=== PATIENT | female | born 1940 | race Caucasian/White ===

== ENCOUNTER 2021-11-11 11:02 | Inpatient (IN) | payer MEDICARE, MEDICAID, SELFPAY ==
[2021-11-11] VITALS (26 sets, daily range): BP systolic 128–162; BP diastolic 66–96; PULSE 80–101; RESP 13–23; TEMP 36.7–37.1; O2SAT 90–100; BMI 26.4
--- NOTE | 2021-11-11 11:03 | ECG_ITS ---
[facility] Test Date: 2021-11-11 Pat Name: Nemo Way Department: Room: ICU03 Gender: Female Ibm Mainframe Developer: : 1940 Requested By: Pema Velazco Order Number: [id number] Reading MD: Jagdish Celestin M.D. Measurements Intervals [place] Rate: 82 P: 42 AL: 136 QRS: -15 QRSD: 89 T: 37 QT: 383 QTc: 448 Interpretive Statements SINUS RHYTHM LOW QRS VOLTAGE IN PRECORDIAL LEADS [QRS DEFLECTION < 1.0 mV IN CHEST LEADS] MARKED ST ELEVATION, CONSIDER INFERIOR INJURY [MARKED ST ELEVATION W/O NORMALLY INFLECTED T-WAVE IN II/aVF] ACUTE MO Compared to ECG 01/25/2019 20:02:57 ST (T wave) deviation now present Left-axis deviation no longer present T-wave abnormality no longer present Possible ischemia no longer present Myocardial infarct finding still present Electronically Signed On 11-12-2021 12:24:47 GRAIN MIXER by Jagdish Celestin M.D. [id number]
--- NOTE | 2021-11-11 11:11 | XACV_ITS ---
Exam Room: 2 Ht: 160 cm Wt: 70 kg BSA: 1.79 m2 Gender: Female : 1940 Any Known Allergies: No known allergies Exam Priority: Routine Indication(s): - Acute inferior NE Procedure(s): Procedure Description: Diagnostic procedure Procedure Description: PCI procedure Procedure Description: Drug Eluting Coronary Stent Procedure Description: PTCA Procedure Description: Coronary Angiography Diagnostic Cath Status: Emergency Diagnostic Findings * This is a 81-year-old woman with diabetes and dyslipidemia who began to have chest pain at 9 AM this morning. EKG showed typical findings of an acute inferolateral wall myocardial infarction. She was brought to the Probate Paralegal. * Angiography reveals right coronary artery dominance. The left main is normal and bifurcates into the LAD and circumflex. Circumflex contains a significant calcium proximal and mid vessel. The vessel is closed in the midportion. This is the culprit vessel. The LAD also contains luminal irregularities and calcium. There is a 98% stenosis just beyond the ostium of the LAD. The right coronary artery is the dominant vessel and ends distally as the posterior descending artery and 2 small posterior left ventricular branches. Aside from luminal irregularities it is normal. PCI Status: Emergency PCI LVEF Assessed: No PCI Indication: STEMI - Immediate PCI for STEMI Interventional Findings * Initially the circumflex was approached. A wire was placed across the thrombotic occlusion. Angioplasty and stenting were performed without incident. Due to the severe nature of the ostial LAD stenosis this was primarily stented with a good result. Decision for PCI with Surgical Consult: No PCI for Multi-vessel Disease: Yes Multi-vessel Procedure Type: Initial PCI Conclusions 1. Acute inferolateral myocardial infarction involving the mid circumflex with successful angioplasty and stent. Primary stenting of the ostial LAD. Recommendations * Medical therapy from this point forward. Interventional RX Recommendation: PCI w/o planned CABG Diagnostic RX Recommendation: PCI w/o planned CABG Anticoagulation: Heparin Pressures Phase:Rest AO : 182 / 105 ( 140 ) @ 9:33:00 AM 7 / -17 ( -6 ) @ 9:37:00 AM 178 / 94 ( 132 ) @ 9:53:00 AM 169 / 101 ( 133 ) @ 9:58:00 AM 171 / 92 ( 117 ) @ 10:00:00 AM 87 / 43 ( 64 ) @ 10:00:00 AM Clinical Evaluation EBL: 5mL-10mL Procedural Details Procedure Consent Obtained. Pre-Procedure Time Out. Identified patient by full name and date of as verbalized by the patient/guarantor. Does the consent match the physician's order: N/A Emergent. Accurate & Complete Informed Consent: Yes. Inpatient/Outpatient History & Physical on Chart: N/A Emergent. If H&P is completed, is and addenduem needed: N/A Emergent; If yes, is the addendum complete: N/A Emergent. Visualize and Verify Site with Patient/Guarantor: N/A. Relevant Radiology Images available: N/A Emergent. Pre-op teaching completed and patient verbalized understanding. The risks, benefits, and alternatives of sedation and/or procedure were discussed by physician. The patient agrees to continue. Procedure started. [facility] Clinical Fraility Score: 3: Managing Well. Probate Paralegal Indications: ACS <= 24 hours. Chest Pain Symptom Assessment: Typical Angina Symptoms. Cardiovascular Instability: No. Correct patient, site and procedure confirmed by cath team. PERRLA. Strong, equal hand sustainability officer bilaterally. Lungs clear x 5 lobes. IV Site on Arrival: 18 gauge in the left anticubital. IV Fluids: 0.9% NaCl at KVO. 200 mL infused prior to label printer. Oxygen started at 2liters/min via nasal canula. Physician arrived. Baseline sample Acquired. HR: 84 BPM. bilateral groins was prepped with chloroprep then draped in the usual sterile fashion. right radial was prepped with chloroprep then draped in the usual sterile fashion. Equipment: 6F - Radial. Cardiac Cath Pack. ACIST Manifold Kit Model BT 2000. Heparinized Saline (2 units/mL), 1000 mL bag. Maria R Connelly RN will be circulating nurse for this case. Physician scrubbed in. Immediate Pre-Procedure Time Out. Correct Patient: Yes; Correct Procedure: N/A Emergent; Correct Site: N/A Emergent; Correct Patient Position: N/A Emergent; Correct Supplies: N/A Emergent; Dried Flammable Prep: N/A Emergent; Blood Products Available: N/A Emergent;. Lidocaine 1% infiltrated to the right radial. Arterial access obtained. A 5 thai TIG catheter in over wire. Multiple views taken of left coronary artery. Catheter redirected to the RCA. Glidewire inserted for catheter exchange. Inventory is TR Glidewire Angled Stiff Shaft .035 260cm. Catheter and glidewire out. A 5 thai JR4 catheter in over wire. Catheter removed over the standard wire. Unable to properly seat catheters due to tortuous anantomy. Physician moving to femoral artery approach. A TR Band was successful obtaining hemostatsis at the Right Radial artery insertion site. Lidocaine 1% infiltrated to the right groin. Arterial access obtained. A 5 thai JR4 catheter in over wire. Multiple views taken of right coronary artery. Catheter removed over the standard wire. 6 thai XB 3 guide catheter was inserted over the wire. PCI Indication: STEMI. Current Diagnosis : STEMI. Axis guidewire was advanced through the guide catheter to lesion in the mid Circ. Inflation Number : 1 A MDT R MIL 3.5X18 DEBORAH -Lot Number# _[id number] EXP: 06/01/2024 was prepped and advanced across the Mid CX. The stent was deployed at 13 SHERIDAN for 0:35 seconds. Stent balloon and wire out. Axis guidewire was advanced through the guide catheter to lesion in the prox LAD. AP Pads placed on patient. Inflation Number : 1 A MDT R MIL 3.0X12 DEBORAH -Lot Number# _[id number] EXP: 01/12/2024 was prepped and advanced across the Prox LAD. The stent was deployed at 12 SHREIDAN for 0:32 seconds. Stent balloon and wire out. Guide catheter out. Sheath(s) sutured into position with 2-0 silk and sterile 4x4's and Op-site applied over the site. No oozing or signs and symptoms of hematoma noted. Arterial sheath flushed and connected to tranducer and pressure bag with heparinized saline. Post Procedure: Pulses reassessed and unchanged. No VTE prophylaxis required. A Suture was successful obtaining hemostatsis at the Right Femoral artery insertion site. TR band placed. Hemostasis obtained. PERRLA. Strong, equal hand sustainability officer bilaterally. Medication's Wasted: Lidocaine 1% = 8 mL. Medication's Wasted: Nitro = 49.8 mg. Medication's Wasted: Heparin = 2000 units. Total IV fluids: 55 mL. Contrast type used: Omnipaque 300 mg/mL, 150 mL bottle. Post-op diagnosis: stemi. Complications: none. Estimated blood loss: 5mL-10mL. Responsiveness - Normal response to verbal stimuli; alert and oriented, PERRLA. Airway - Unaffected, no intervention required; spontaneous ventilation. Circulation: W/N/L, pulses unchanged. Nausea/Vomiting: No. Procedure completed. Patient transferred by bed to ICU. Vital chart was stopped. Access Site Site: Right Radial artery Sheath Size: 6 Fr Hemostasis Method: TR Band Hemostasis Success: Successful Site: Right Femoral artery Sheath Size: 6 Fr Hemostasis Method: Suture Hemostasis Success: Successful Procedure Medications Start: 11:31 AM Stop: 11:31 AM Medication: Nitrogylcerin Amount: 200 mcg Route: I.A. Start: 11:33 AM Stop: 11:33 AM Medication: Versed Amount: 1 mg Route: I.V. Start: 11:25 AM Stop: 11:25 AM Medication: Versed Amount: 1 mg Route: I.V. Start: 11:25 AM Stop: 11:25 AM Medication: Fentanyl Amount: 50 mcg Start: 11:49 AM Stop: 11:49 AM Medication: Versed 1 mg and Fentanyl 25 mcg Amount: 1 Route: I.V. Start: 11:52 AM Stop: 11:52 AM Medication: Heparin Amount: 2000 units Route: I.V. I, the attending physician, have reviewed and verified all procedure medications. Yes, all medications given per verbal order History/Risk Factors Hypertension: No Dyslipidemia: Yes Peripheral Arterial Disease (PAD): No Myocardial Infarction (NE): No Obesity: No Renal Disease: No Prior Interventions PCI: No CABG: No Valve Surgery: No Report Signatures Finalized by Dr. Jagdish Celestin MD on 11/11/2021 03:57 PM
--- NOTE | 2021-11-11 11:11 | W.ED.GENADLT ---
HPI - General Adult General: Chief complaint: Chest Pain Stated complaint: CHEST PAIN Time Seen by Provider: 11/11/21 11:03 History of Present Illness: CC: Chest Pain HPI: This is a [81] yo patient hx of HTN, HLD, DM BIBA to the ED w/ acute onset crushing substernal chest pain x 15 hours. En route, HDS, field ECG showed inferioposterolateral STEMI. Onset: 15 hrs ago Duration: ongoing for the last 15 hrs Location: home Severity: severe Associated symptoms: Reports chest pain; Deny dyspnea, nausea, rash, palpitations or vomiting Review of Systems Const: Denies: fever(s) or chills Eyes: Denies: change in vision ENMT: Denies: mouth pain Card: Reports: chest pain; Denies: palpitations Resp: Denies: dyspnea or non-productive cough GI: Denies: abdominal pain, nausea, vomiting or diarrhea : Denies: dysuria Musc: Denies: extremity pain Skin/Breast: Denies: rash or new lesions Neuro: Denies: weakness in extremities Psych: Reports: other (Normal mood) Lamberto/Lymph: Denies: easy bruising PFSH ED PFSH: Medical History Dyslipidemia GERD (gastroesophageal reflux disease) HTN (hypertension) Hypothyroidism Palpitations Social History Smoking and tobacco status: never smoked Alcohol intake: never Physical Exam Const: COMMON NORMALS: alert HENMT: COMMON NORMALS: atraumatic HEAD & SCALP: atraumatic MOUTH: moist mucous membranes not abnormal Eye: COMMON NORMALS: EOMs intact bilaterally and conjunctivae normal CONJUNCTIVA: Yes conjunctivae normal Neck/C-Spine: COMMON NORMALS: full ROM and supple Resp: COMMON NORMALS: normal respiratory effort and clear to auscultation bilaterally AUSCULTATION: clear to auscultation bilaterally Cardio: COMMON NORMALS: regular rate RATE: regular rate GI: COMMON NORMALS: Soft to palpation and non-tender PALPATION: Yes Soft to palpation Extremity: COMMON NORMALS: full ROM Neuro: SENSORIUM/ORIENTATION: Yes alert MOTOR EXAM: No Abnormal motor strength present and Other motor observations present (no focal motor deficits) Psych: COMMON NORMALS: speech normal SPEECH: Yes normal speech MOOD & AFFECT: Yes euthymic mood Course Vital Signs: Vital signs: Vital Signs Temperature 98.0 F 11/11/21 11:04 Pulse Rate 80 11/11/21 11:04 Respiratory Rate 18 11/11/21 11:04 Blood Pressure 158/96 11/11/21 11:04 Pulse Oximetry 92 11/11/21 11:04 MDM - General Adult Medical Decision Making [81]yo pt w/ HTN, HLD, DM BIBA for active chest pain with field EKG for STEMI in the inferioposteriolateral distribution. Patient was otherwise in their normal state of health before this chest pain rapidly ensued. Given history and exam I have a lower suspicion for TAA or dissection because no tearing chest pain, bounding bilateral UE pulses, XR chest did not show widened mediastinum, and patient is neurologically intact. I have no suspicion for PE because hx and exam are more consistent with STEMI and no signs of right axis with ANTONIA findings on ECG. I performed a bedside echo which did not right heart strain to suggest submassive/massive PE. Pending: CBC, BMP, troponin, T&S, PT/INR. Will obtain repeat EKGs until metallurgical laboratory assistant, CXR. S/p ASA and nitro en route by EMS. Given brillanta, heparin drip. Dr. Celestin evaluated patient at bedside with recommendation for metallurgical laboratory assistant Disposition: Mortar Worker Discharge Plan Discharge Patient Disposition: Admitted As Inpatient Clinical Impression: ST elevation (STEMI) myocardial infarction Condition: Stable Coding Level of Care Code ED Clinical Research Director for Almaz Sutton
[2021-11-11] MEDS: heparin 5,000 unit/mL INJ 1 mL 4000 UNIT IVP (11:15)
[2021-11-11] MEDS: ticagrelor 90 mg Tablet 180 MG PO (11:17)
[2021-11-11 11:43] LABS: Troponin(5th) Baseline 64 ng/L (0-10)
--- NOTE | 2021-11-11 13:03 | ECG_ITS ---
[facility] Test Date: 2021-11-11 Pat Name: Nemo Way Department: Room: ICU03 Gender: Female Clinching Machine Operator: : 1940 Requested By: Pema Velazco Order Number: [id number] Dat MD: Jagdish Celestin M.D. Measurements Intervals [place] Rate: 87 P: 48 ME: 142 QRS: -39 QRSD: 75 T: 180 QT: 374 QTc: 450 Interpretive Statements SINUS RHYTHM WITH SINUS ARRHYTHMIA LEFT AXIS DEVIATION [QRS AXIS < -30] LOW QRS VOLTAGE IN PRECORDIAL LEADS [QRS DEFLECTION < 1.0 mV IN CHEST LEADS] INFERIOR MYOCARDIAL INFARCTION , OF INDETERMINATE AGE [30 ms Q WAVE IN V3/V4, OR R < 0.2 mV IN V4] MODERATE T-WAVE ABNORMALITY, CONSIDER LATERAL ISCHEMIA [-0.1+ mV T-WAVE IN I/aVL/V5/V6] Compared to ECG 11/11/2021 13:46:55 T-wave abnormality now present Possible ischemia now present ST (T wave) deviation no longer present Myocardial infarct finding still present Electronically Signed On 11-12-2021 12:29:53 CLUB MANAGER by Jagdish Celestin M.D. [id number]
--- NOTE | 2021-11-11 13:16 | P.HP_ITS ---
Providers/Chief Complaint Admitting Physician: Jagdish Celestin MD Primary Care Provider: Ora Lynn Chief Complaint: CHEST PAIN History of Present Illness Nemo Way is a 81 year old female with no known history of heart disease but she does have a history of diabetes on oral agents, hypertension, dyslipidemia and thyroid disease. She is not allergic to any medications. For the last 3 nights she has had what she describes as a heaviness on her chest. It has gone away on its own. This morning it did not go away and started about 9:00. The pain then got worse and she called the ambulance. Her EKG showed a ST segment elevation NV. She was treated in the emergency room and taken quickly to the catheterization laboratory. Her circumflex was occluded in the midportion and she had a 99% ostial LAD lesion. Review of Systems Narrative: Review of systems is negative Medications/Allergies Home Medications Medication Instructions Recorded Confirmed Last Taken Type ascorbic acid (vitamin C) 1,000 mg 1 gm PO DAILY tab 09/23/19 03/31/20 Unknown History tablet aspirin 81 mg tablet,delayed 81 mg PO DAILY tab 09/23/19 03/31/20 Unknown History release (Adult Low Dose Aspirin) calcium carbonate 500 mg (1,250 1 tab PO DAILY tab 09/23/19 03/31/20 Unknown History mg)-vitamin D3 200 unit tablet (Calcium 500 + D) cholecalciferol (vitamin D3) 25 1,000 unit PO DAILY cap 09/23/19 03/31/20 Unknown History mcg (1,000 unit) capsule estradiol 1 mg tablet 1 mg PO DAILY tab 09/23/19 03/31/20 Unknown History levothyroxine 25 mcg capsule 25 mcg PO DAILY cap 09/23/19 03/31/20 Unknown History multivitamin,di-puya-safxavdu 1 tab PO DAILY tab 09/23/19 03/31/20 Unknown History (Complete Multivitamin) omega-3 fatty acids 1,000 mg 1,000 mg PO DAILY cap 09/23/19 03/31/20 Unknown History capsule vitamin E 200 unit capsule 200 unit PO DAILY cap 09/23/19 03/31/20 Unknown History hydrochlorothiazide 12.5 mg tablet 25 mg PO DAILY PRN tab 03/31/20 03/31/20 Unknown History magnesium oxide 400 mg PO DAILY 03/31/20 03/31/20 Unknown History AREDS PO BID 10/06/21 Unknown History gemfibrozil 600 mg tablet ea PO 10/06/21 Unknown History Allergies Allergy/AdvReac Type Severity Reaction Status Date / Time No Known Allergies Allergy Verified 11/11/21 11:03 PFSH Acute PFSH: Medical History Dyslipidemia GERD (gastroesophageal reflux disease) HTN (hypertension) Hypothyroidism Palpitations Social History Smoking and tobacco status: never smoked Alcohol intake: never Vitals/I&O/Wt Last Vital Signs Temp 98.7 F 11/11/21 11:18 Pulse 86 11/11/21 11:18 Resp 19 H 11/11/21 11:18 BP 158/96 11/11/21 11:18 Pulse Ox 90 11/11/21 11:18 Weight last 48 hrs Weight 169 lb 12.095 oz Weight 154 lb Physical Exam Narrative: GENERAL: General she appears stable but is mildly uncomfortable with chest discomfort HEENT: Exam within normal limits. NECK: Supple without jugular vein distention. The carotid upstroke is normal without bruits. BACK: Exam normal. LUNGS: Clear. HEART: Regular rate and rhythm. ABDOMEN: Benign without organomegaly or tenderness. EXTREMITIES: No edema. NEUROLOGIC: Exam normal. SKIN: Unremarkable. Data Other Labs: Labs are pending at the time of this dictation A&P Assessment and plan (1) ST elevation (STEMI) myocardial infarction: Status: Acute (2) Hypothyroidism: Status: Acute Qualifiers: Hypothyroidism type: unspecified Qualified Code(s): E03.9 - Hypothyroidism, unspecified (3) GERD (gastroesophageal reflux disease): Status: Acute Qualifiers: Esophagitis presence: esophagitis presence not specified Qualified Code(s): K21.9 - Gastro-esophageal reflux disease without esophagitis (4) Dyslipidemia: Status: Acute (5) Diabetes 1.5, managed as type 2: Status: Acute Attestations Medical Necessity Statement*: Patient needs acute hospitalization after catheterization for acute ST segment elevation NV Coding Level of Care Code New Pt Acute Minute Clerk For Basic Traffic for Chg Fwd Patient Type New History Comprehensive Exam Comprehensive Medical Decision Making High Complexity Diagnoses ST elevation (STEMI) myocardial infarction I21.3 Hypothyroidism E03.9 Hypothyroidism type: unspecified GERD (gastroesophageal reflux disease) K21.9 Esophagitis presence: esophagitis presence not specified Dyslipidemia E78.5 Diabetes 1.5, managed as type 2 E13.9 Time Spent (min) 20
[2021-11-11 13:45] LABS: Glucose Point of Care 176 mg/dL (70-110)
[2021-11-11 14:31] LABS: Troponin 5 2HR 5254 ng/L (0-10); Troponin 5 2HR Delta 5190 ABS# (0-10)
[2021-11-11 14:44] LABS: Partial Thromboplastin Time 151.5 SECONDS (23.9-36.7)
[2021-11-11] MEDS: sodium chloride 0.9% 1,000 ML 100 ML IV (14:50)
--- NOTE | 2021-11-11 17:03 | ECG_ITS ---
[facility] Test Date: 2021-11-11 Pat Name: Nemo Way Department: Room: ICU03 Gender: Female Data Collection Specialist: : 1940 Requested By: Pema Velazco Order Number: [id number] Dat MD: Jagdish eClestin M.D. Measurements Intervals [place] Rate: 83 P: 44 NV: 146 QRS: -33 QRSD: 79 T: 180 QT: 382 QTc: 449 Interpretive Statements SINUS RHYTHM WITH SINUS ARRHYTHMIA LEFT AXIS DEVIATION [QRS AXIS < -30] LOW QRS VOLTAGE IN PRECORDIAL LEADS [QRS DEFLECTION < 1.0 mV IN CHEST LEADS] POSSIBLE ANTERIOR MYOCARDIAL INFARCTION , OF INDETERMINATE AGE [30 ms Q WAVE IN V3/V4, OR R < 0.2 mV IN V4] ST ELEVATION, CONSIDER INFERIOR INJURY [MARKED ST ELEVATION W/O NORMALLY INFLECTED T-WAVE IN II/aVF] ACUTE CA Compared to ECG 01/25/2019 20:02:57 ST (T wave) deviation now present T-wave abnormality no longer present Possible ischemia no longer present Myocardial infarct finding still present Electronically Signed On 11-12-2021 12:28:17 LATCHER by Jagdish Celestin M.D. [id number]
[2021-11-11 17:14] LABS: Partial Thromboplastin Time 23.9 SECONDS (23.9-36.7)
[2021-11-11 17:28] LABS: Glucose Point of Care 127 mg/dL (70-110)
[2021-11-11 17:58] LABS: Troponin 5 6HR 8935 ng/L (0-10)
[2021-11-11 17:59] LABS: Troponin 5 6HR Delta 8871 ng/L (0-12)
[2021-11-11] MEDS: morphine 4 mg/mL SDV 1 mL 2 MG IVP (18:19)
--- NOTE | 2021-11-11 19:29 | PC.NURSE ---
TR band and Sheath pulled at 1850, no complications, no hematoma formation. Patient tolerated well. Dressings applied. There was a delay in pulling sheath due to high PTT. Patient educated on bed rest, not pushing/pulling with right arm, and S/S of bleeding and chest pain.
--- NOTE | 2021-11-11 22:58 | PC.NURSE ---
Spoke to Dr. Celestin to report that patient has had three short runs of wide complex tachycardia. Orders for labs in the am.
[2021-11-12] VITALS (50 sets, daily range): BP systolic 102–144; BP diastolic 55–87; PULSE 80–102; RESP 8–27; TEMP 36.1; O2SAT 85–100
[2021-11-12] MEDS: sodium chloride 0.9% 1,000 ML 100 ML IV ×2 (02:06→14:02)
[2021-11-12] MEDS: morphine 4 mg/mL SDV 1 mL 2 MG IVP ×2 (02:06→23:41)
[2021-11-12 04:27] LABS: Alanine Aminotransferase 46 U/L (0-33); Albumin Level 3.3 g/dL (3.5-5.2); Alkaline Phosphatase 102 IU/L (35-105); Anion Gap 13.6 (5-19); Aspartate Amino Transferase 225 U/L (0-32); Blood Urea Nitrogen 7 mg/dL (8-23); Calcium 8.8 mg/dL (8.5-10.5); Carbon Dioxide 24 mmol/L (22-29); Chloride 98 mmol/L (98-107); Glucose 175 mg/dL (65-115); Magnesium 1.7 mg/dL (1.7-2.3); Osmolality Calculated 276 mOsm/kg (285-295); Potassium 3.6 mmol/L (3.5-5.1); Sodium 132 mmol/L (136-145); Total Bilirubin 0.3 mg/dL (0.15-1.2); Total Protein 6.3 g/dL (6.6-8.7)
[2021-11-12 07:15] LABS: Glucose Point of Care 203 mg/dL (70-110)
--- NOTE | 2021-11-12 07:43 | P.PN_ITS ---
Subjective Subjective: Patient had an acute myocardial infarction yesterday morning with an occluded circumflex. This was stented after angioplasty. She also had a 98% ostial LAD which was stented. The right was normal. No left ventriculogram was performed. We initially used the right radial artery but due to the tortuosity in her brachial vessels we had to switch to the right common femoral artery. The procedure went well. Both sheaths have been removed and there have been no complications. She had some premature ventricular contractions overnight but no sustained tachycardias. Her troponin was as high as 8000. Medications: Reviewed: Yes Vitals/I&O/Wt Last Vital Signs Temp 98.7 F 11/11/21 11:18 Pulse 92 11/11/21 14:00 Resp 16 11/12/21 02:06 BP 141/83 11/11/21 13:00 Pulse Ox 99 11/12/21 02:06 11/11/21 11/12/21 11/12/21 22:59 06:59 14:59 Intake Total 240 / 240 1300 / 1540 Output Total 1150 / 1150 250 / 250 Balance -910 / -910 1300 / 390 -250 / -250 Weight last 48 hrs Weight 169 lb 12.095 oz Weight 154 lb Physical Exam Narrative: GENERAL: In general she feels well this morning. She feels much better than yesterday. HEENT: Exam within normal limits. NECK: Supple without jugular vein distention. The carotid upstroke is normal without bruits. BACK: Exam normal. LUNGS: Clear. HEART: Regular rate and rhythm. ABDOMEN: Benign without organomegaly or tenderness. EXTREMITIES: No edema. The right radial artery is flat and dry. No hematoma, no evidence of any vascular anomaly. The right groin exhibits no bleeding, and the no hematoma. No evidence of a pseudoaneurysm. NEUROLOGIC: Exam normal. SKIN: Unremarkable. Data : 11/12/21 03:02 A&P Assessment and plan (1) Diabetes 1.5, managed as type 2: Status: Acute (2) ST elevation (STEMI) myocardial infarction: Status: Acute (3) Hypothyroidism: Status: Acute Qualifiers: Hypothyroidism type: unspecified Qualified Code(s): E03.9 - Hypothyroidism, unspecified (4) GERD (gastroesophageal reflux disease): Status: Acute Qualifiers: Esophagitis presence: esophagitis presence not specified Qualified Code(s): K21.9 - Gastro-esophageal reflux disease without esophagitis (5) Dyslipidemia: Status: Acute (6) Transaminitis: Status: Acute (7) PVCs (premature ventricular contractions): Status: Acute Plan She should be up and around today. The sheaths are out without any difficulty. I would anticipate her discharge tomorrow. I will obtain an echocardiogram today. She remains on sliding scale insulin which will have to be changed back to her by mouth dose of glipizide tomorrow before she is discharged. I will change her beta-lenore to short acting metoprolol. We will set her up with a nurse practitioner in a week and then to see one of the cardiologists in about 6 weeks. Attestations Medical Necessity Statement*: She requires hospitalization for about 24 hours further for treatment of an acute myocardial infarction post stenting of 2 vessels. Also treatment of diabetes. Coding Level of Care Code Established Pt Acute Contracts Administrator for Almaz Sutton Patient Type Established History Detailed Exam Detailed Medical Decision Making Moderate Complexity Diagnoses Diabetes 1.5, managed as type [address] elevation (STEMI) myocardial infarction I21.3 Hypothyroidism E03.9 Hypothyroidism type: unspecified GERD (gastroesophageal reflux disease) K21.9 Esophagitis presence: esophagitis presence not specified Dyslipidemia E78.5 Transaminitis R74.01 PVCs (premature ventricular contractions) I49.3
--- NOTE | 2021-11-12 07:51 | USCV_ITS ---
[address] Age: 81 Gender: F : 1940 Exam Date: 11/12/2021 13:51 Ordering Phys: Jagdish Celestin MD ([email or web address]) Technologist: Exam Location: [facility] [place] Indication: HX OF PR BP: 115 / 54 HR: 91 Rhythm: Sinus Technical Quality: Adequate MEASUREMENTS (Male / Female) Normal Values 2D ECHO LV Diastolic Diameter PLAX 4.2 cm 4.2 - 5.9 / 3.9 - 5.3 cm LV Systolic Diameter PLAX 2.8 cm IVS Diastolic Thickness 1.2 cm 0.6 - 1.0 / 0.6 - 0.9 cm IVS Systolic Thickness 1.3 cm LVPW Diastolic Thickness 1.1 cm 0.6 - 1.0 / 0.6 - 0.9 cm LVPW Systolic Thickness 1.2 cm LVOT Diameter 2.0 cm LV Ejection Fraction 2D Teich 62.5 % LV Ejection Fraction MOD 2C 44.5 % LV Ejection Fraction 2C AL 43.4 % LA Diameter 3.3 cm LA Width 3.5 cm LA Height 3.7 cm RA Width 2.7 cm RA Height 3.8 cm M-MODE LV Diastolic Diameter MM 5.2 cm 4.2 - 5.9 / 3.9 - 5.3 cm LV Systolic Diameter MM 3.5 cm LV Ejection Fraction MM Teich 61.6 % IVS Diastolic Thickness MM 1.1 cm 0.6 - 1.0 / 0.6 - 0.9 cm IVS Systolic Thickness MM 1.1 cm LVPW Diastolic Thickness MM 1.0 cm 0.6 - 1.0 / 0.6 - 0.9 cm LVPW Systolic Thickness MM 1.5 cm RV Diastolic Diameter MM 1.5 cm Aortic Annulus Diameter 2.9 cm LA Ao Ratio MM 1.3 MV E Point Septal Separation 0.7 cm DOPPLER AV Peak Velocity 168.0 cm/s LVOT Peak Velocity 92.0 cm/s AV Area Cont Eq vti 1.9 cm squared AV Area Cont Eq pk 1.8 cm squared MV Area PHT 5.0 cm squared Mitral E to A Ratio 1.0 MV E' Velocity 54.0 cm/s Mitral E to MV E' Ratio 14.9 Mitral E to LV E' Lateral Ratio 12.1 Mitral E to LV E' Septal Ratio 20.0 TR Peak Velocity 273.7 cm/s TR Peak Gradient 30.0 mmHg TV Peak E Velocity 85.0 cm/s Right Atrial Pressure 3.0 mmHg Pulmonary Artery Systolic Pressu 33.0 mmHg FINDINGS Left Ventricle Normal left ventricular cavity size. Mild left ventricular hypertrophy. Mildly decreased left ventricular systolic function. Left ventricular ejection fraction is estimated at 45 %. Regional wall motion abnormalities (see diagram). Grade I/IV diastolic dysfunction (abnormal relaxation filling pattern), normal to mildly elevated filling pressures. Moderate lateral wall hypokinesis suggesting coronary artery disease and myocardial infarction. Right Ventricle Normal right ventricular size and systolic function. Mild pulmonary hypertension, RVSP 33 mmHg. Right Atrium Normal right atrial size. Left Atrium Normal left atrial size. Mitral Valve Structurally normal mitral valve. No mitral valve stenosis. No mitral valve regurgitation. Aortic Valve Mild aortic valve calcification. No aortic valve regurgitation. Mild aortic valve stenosis, mean gradient 5 mmHg, LINH 1.9 cm squared. Tricuspid Valve Structurally normal tricuspid valve. Trace to mild tricuspid valve regurgitation. Pulmonic Valve Pulmonic valve not well visualized. Pericardium No pericardial effusion. Aorta Normal size aortic root and proximal ascending aorta. CONCLUSIONS Normal left ventricular cavity size. Mild left ventricular hypertrophy. Mildly decreased left ventricular systolic function. Left ventricular ejection fraction is estimated at 45 %. Regional wall motion abnormalities (see diagram). Grade I/IV diastolic dysfunction (abnormal relaxation filling pattern), normal to mildly elevated filling pressures. Moderate lateral wall hypokinesis suggesting coronary artery disease and myocardial infarction. Normal right ventricular size and systolic function. Mild pulmonary hypertension, RVSP 33 mmHg. Mild aortic valve calcification. No aortic valve regurgitation. Mild aortic valve stenosis, mean gradient 5 mmHg, LINH 1.[address] Jagdish Celestin MD (Electronically Signed) Final Date: 13 November 2021 06:55 S
[2021-11-12] MEDS: aspirin 81 mg Chew Tablet PO (07:59)
[2021-11-12] MEDS: clopidogrel 75 mg Tablet PO (07:59)
[2021-11-12] MEDS: metoprolol tartrate 25 mg Tablet PO ×2 (07:59→20:47)
[2021-11-12] MEDS: insulin lispro 100 unit/1 mL SUBCUT ×3 (07:59→17:19)
--- NOTE | 2021-11-12 10:08 | PC.CHAP ---
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 visit [] Patient/Family/Request visit [] Outpatient visit [] Follow-up visit [] Physician referral [] Code/Alert [x] Routine visit [] Staff referral [] Actively dying [] Patient sleeping [] Family support [] [] Out of room [] Palliative care [] [] Receiving care in room [] Pre-surgical visit [] Trauma [] Long length of stay [x] ICU visit [] Other: Relational/Emotional Strength [] Patient feels connected with others/family/visitors/staff [] Distress [] Loneliness/isolation [] Abandonment Spirituality of Patient [] Person of Katarzyna [] Attends Restorationist of their Katarzyna [] Believes in Prayer [] Reads Bible or Confucianist materials [] There are Spiritual issues to be addressed 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 Interventions [x] Prayer [] Active listening [] Non-anxious presence [] Spiritual/emotional support [] Crisis/trauma care [] Spiritual counseling [] Bereavement support [] Provided bereavement packet [] Provided Bible/devotional materials [] Provided toy/stuffed animal, coloring book to patient or family member [] Provided Communion [] Anointing/Terrell [] Salvation [x] Completed spiritual assessment [] Other: Impact on Illness or Injury [] Angry [] Fearful [] Anxious [] Often cries [] Exhaustion [] Unable to work [] Unable to attend anabaptism [] Unable to walk/stand [] Unable to read [] Unable to drive [] Unable to eat/drink [] Unable to sleep [] Unable to be with family [] Patient intubated [] Other: Summary Time spent with patient
[2021-11-12 11:18] LABS: Glucose Point of Care 197 mg/dL (70-110)
[2021-11-12] MEDS: glycerin adult supp 1 EACH PR (13:15)
[2021-11-12 17:25] LABS: Glucose Point of Care 148 mg/dL (70-110)
[2021-11-12] MEDS: acetaminophen 325 mg Tablet 650 MG PO (17:34)
--- NOTE | 2021-11-12 18:38 | PC.NURSE ---
PT resting in bed. c/o mild back pain. Denies any needs. No ectopy or CP today. Uses BSC with minimal assist. AAOX4, family at bedside. Will monitor.
[2021-11-12] MEDS: atorvastatin 40 mg Tablet PO (20:47)
[2021-11-12 20:50] LABS: Glucose Point of Care 201 mg/dL (70-110)
[2021-11-12] MEDS: temazepam 15 mg Capsule PO (20:59)
[2021-11-13] VITALS (26 sets, daily range): BP systolic 95–136; BP diastolic 59–104; PULSE 79–95; RESP 13–23; TEMP 36.6; O2SAT 88–97
[2021-11-13] MEDS: acetaminophen 325 mg Tablet 650 MG PO (01:30)
[2021-11-13] MEDS: sodium chloride 0.9% 1,000 ML 100 ML IV (01:32)
[2021-11-13] MEDS: morphine 4 mg/mL SDV 1 mL 2 MG IVP (03:06)
[2021-11-13 07:03] LABS: Glucose Point of Care 160 mg/dL (70-110)
[2021-11-13] MEDS: insulin lispro 100 unit/1 mL SUBCUT ×2 (08:07→11:48)
[2021-11-13] MEDS: clopidogrel 75 mg Tablet PO (08:08)
[2021-11-13] MEDS: aspirin 81 mg Chew Tablet PO (08:08)
[2021-11-13] MEDS: metoprolol tartrate 25 mg Tablet PO (08:10)
--- NOTE | 2021-11-13 10:23 | ECG_ITS ---
[facility] Test Date: 2021-11-13 Pat Name: Nemo Way Department: Room: ICU03 Gender: Female Pattern Room Attendant: : 1940 Requested By: Janet Holcomb Order Number: [id number] Dat MD: Janet Holcomb M.D. Measurements Intervals [place] Rate: 93 P: 25 LA: 151 QRS: -38 QRSD: 74 T: 197 QT: 379 QTc: 472 Interpretive Statements SINUS RHYTHM WITH MARKED SINUS ARRHYTHMIA LEFT AXIS DEVIATION [QRS AXIS < -30] LOW QRS VOLTAGE IN PRECORDIAL LEADS [QRS DEFLECTION < 1.0 mV IN CHEST LEADS] POSSIBLE ANTERIOR MYOCARDIAL INFARCTION , PROBABLY OLD [30 ms Q WAVE IN V3/V4, OR R < 0.2 mV IN V4] MODERATE T-WAVE ABNORMALITY, CONSIDER LATERAL ISCHEMIA [-0.1+ mV T-WAVE IN I/aVL/V5/V6] MODERATE T-WAVE ABNORMALITY, CONSIDER INFERIOR ISCHEMIA [-0.1+ mV T-WAVE IN II/aVF] Compared to ECG 11/11/2021 17:33:57 No significant changes Electronically Signed On 11-13-2021 18:09:19 MACHINE TENDER by Janet Holcomb M.D. [id number]
--- NOTE | 2021-11-13 10:56 | PM.DCS ---
Discharge Providers Date of Admission: 11/11/21 12:13 Date of Discharge: November 13, 2021 Attending Provider at Admission: Jagdish Celestin MD Attending Provider at Discharge: SADAF Holcomb MD Primary Care Provider: Ora Lynn Diagnoses at Discharge Discharge Diagnosis (1) ST elevation (STEMI) myocardial infarction: Details from hospital stay: Patient apparently presented with features of an acute ST elevation myocardial infarction. She underwent a cardiac radiation followed by PCI of the totally occluded mid circumflex artery and high-grade ostial stenosis of the LAD. Further details, please refer to the cardiac catheterization report. The angiogram was initially attempted at the right radial artery. But because of the tortuosity of the brachial artery, right femoral arterial access of obtained. Status: Acute (2) Atherosclerotic heart disease of [place] coronary artery with unstable angina pectoris: Details from hospital stay: Angiogram revealed a total occlusion of the mid circumflex artery. This appeared to be the culprit vessel. Patient also had a high-grade ostial narrowing from 98% in the LAD. This was intervened as well. No significant disease in the right coronary artery. The LV gram was not performed. Echocardiogram revealed LV ejection fraction around 45%. Status: Acute (3) Hypothyroidism: Details from hospital stay: Clinically appears to be euthyroid. Advised to continue on the current medication. Status: Acute Qualifiers: Hypothyroidism type: unspecified Qualified Code(s): E03.9 - Hypothyroidism, unspecified (4) Diabetes 1.5, managed as type 2: Details from hospital stay: Patient is on oral hypoglycemic. This was continued in the hospital. May continue the same medication at discharge. Status: Acute (5) Dyslipidemia: Details from hospital stay: Patient was started on Lipitor in addition to the gemfibrozil. Her liver function need to be closely monitored as an outpatient. Liver enzymes are slightly elevated at the time of the hospital admission. The repeat one is pending Status: Acute (6) Transaminitis: Details from hospital stay: The liver enzymes are slightly elevated. Follow-up LFT revealed the enzyme levels are trending down. Status: Acute (7) PVCs (premature ventricular contractions): Details from hospital stay: Patient was started on a low-dose of beta-lenore. She did not have any significant PVCs while being in the hospital. Since the PCI, the patient has been doing okay with no recurrence of chest pain. She has been ambulating on the telemetry. Currently she remained stable. Status: Resolved Reason for Visit Reason for Visit: CHEST PAIN Hospital Course Hospital Course The patient was taken to the cardiac catheterization lab from the emergency room. She underwent a cardiac catheterization followed by PCI of the totally occluded mid circumflex artery and high-grade lesion of the ostial LAD. She had an uneventful postprocedure course. Did not have any hematoma /bleeding from the arterial access site. The right radial artery access was used initially. Because of brachial artery tortuosity, had to use the right femoral arterial access for intervention. Patient did not have any hematoma or bleeding of the arterial access site. He remained symptom free throughout the hospital course since the intervention. She had occasional PVCs which responded appropriately to the beta-lenore. She was started on Lipitor and Plavix and metoprolol. She tolerated these medications well. Since the patient remained stable with no new symptoms, she is being discharged home today Physical Exam Narrative: GENERAL: The patient is alert and oriented times three. Not in any acute distress. HEENT: No significant pallor, icterus or lymphadenopathy.Oral cavity: There are no mucous membrane lesions. NECK: Trachea appears to be central. No masses noted. No JVD or thyromegaly appreciated. RESPIRATORY: Chest is symmetrical. No intercostals muscle retraction or any accessory muscle activation. There is no chest wall tenderness. Breath sounds are heard bilaterally. No rales or rhonchi heard. No evidence of any consolidation. BREASTS: Deferred. HEART: The heart sounds are normal. No S3 or S4. No significant murmurs. No pericardial rub ABDOMEN: No vessel pulsations or distention. No tenderness. No organomegaly appreciated. Bowel sounds are normally heard. : Deferred. RECTAL: Deferred. LYMPHATIC: No lymphadenopathy noted in the neck or groin. EXTREMITIES: No edema or cyanosis. No clubbing. MUSCULOSKELETAL: No acute joint deformities or swelling SKIN: There are no significant rashes or ecchymosis NEUROPSYCHIATRIC: The patient is alert and oriented x3. Appears to be in a good mood. No tremors or rigidity noted. 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 echo complete* [id number]] Routine Ultrasound 11/12/21 07:51 Completed Pending at discharge Category Date Time Status BMP [Basic Metabolic Panel] Routine Lab 11/13/21 10:22 Ordered LFT [Liver Panel] Routine Lab 11/13/21 10:22 Ordered Laboratory Results APTT 23.9 SECONDS (23.9-36.7) D 11/11/21 16:15 Sodium 132 mmol/L (136-145) L 11/12/21 03:02 Potassium 3.6 mmol/L (3.5-5.1) 11/12/21 03:02 Chloride 98 mmol/L (98-107) 11/12/21 03:02 Carbon Dioxide 24 mmol/L (22-29) 11/12/21 03:02 Anion Gap 13.6 (5-19) 11/12/21 03:02 BUN 7 mg/dL (8-23) L 11/12/21 03:02 Creatinine 0.4 mg/dL (0.5-0.9) L 11/12/21 03:02 GFR Calculation Not Reportable 11/12/21 03:02 Glucose 175 mg/dL (65-115) H 11/12/21 03:02 POC Glucose 160 mg/dL (70-110) H 11/13/21 06:59 Calculated Osmolality 276 mOsm/kg (285-295) L 11/12/21 03:02 Calcium 8.8 mg/dL (8.5-10.5) 11/12/21 03:02 Magnesium 1.7 mg/dL (1.7-2.3) 11/12/21 03:02 Total Bilirubin 0.3 mg/dL (0.15-1.2) 11/12/21 03:02 AST 225 U/L (0-32) H 11/12/21 03:02 ALT 46 U/L (0-33) H 11/12/21 03:02 Alkaline Phosphatase 102 IU/L (35-105) 11/12/21 03:02 Troponin T Baseline 64 ng/L (0-10) H 11/11/21 11:17 Troponin T 120 Minute 5254 ng/L (0-10) H 11/11/21 13:40 Delta Troponin T 5190 ABS# (0-10) H* 11/11/21 13:40 Troponin T Hi Sens 6Hr 8935 ng/L (0-10) H 11/11/21 17:10 Troponin T Hi Sens 6Hr Delta 8871 ng/L (0-12) H* 11/11/21 17:10 Total Protein 6.3 g/dL (6.6-8.7) L 11/12/21 03:02 Albumin 3.3 g/dL (3.5-5.2) L 11/12/21 03:02 Globulin 3.0 g/dL (1.3-4.6) 11/12/21 03:02 Vitals Last Vital Signs Temp 97.9 F 11/13/21 08:00 Pulse 80 11/13/21 08:00 Resp 16 11/13/21 08:00 BP 128/68 11/13/21 08:00 Pulse Ox 96 11/13/21 08:00 Discharge Plan Discharge Patient Disposition: Home Condition: Stable Prescriptions: New clopidogrel 75 mg Tablet 75 mg PO DAILY 30 Days Qty: 30 5RF atorvastatin 40 mg Tablet 40 mg PO BEDTIME Qty: 30 5RF metoprolol tartrate 25 mg Tablet 25 mg PO BID@0900,2100 30 Days Qty: 60 5RF Continued aspirin [Adult Low Dose Aspirin] 81 mg tablet,delayed release (DR/EC) 81 mg PO DAILY 0RF calcium carbonate-vitamin D3 [Calcium 500 + D] 500 mg(1,250mg) -200 unit tablet 1 tab PO DAILY 0RF estradiol 1 mg tablet 1 mg PO DAILY 0RF levothyroxine 25 mcg capsule 25 mcg PO DAILY 0RF omega-3 fatty acids 1,000 mg capsule 1,000 mg PO DAILY 0RF ascorbic acid (vitamin C) 1,000 mg tablet 1 gm PO DAILY 0RF cholecalciferol (vitamin D3) 1,000 unit capsule 1,000 unit PO DAILY 0RF vitamin E 200 unit capsule 200 unit PO DAILY 0RF hydrochlorothiazide 12.5 mg tablet 25 mg PO DAILY 0RF Label Comments: PRN magnesium oxide 400 mg magnesium capsule 400 mg PO DAILY 0RF gemfibrozil 600 mg tablet 600 ea PO DAILY 0RF AREDS 1 tab PO BID 0RF methocarbamol 500 mg tablet 500 mg PO DAILY 0RF acetaminophen-codeine 300-60 mg tablet 1 - 2 tab PO Q6H 0RF glipizide 5 mg tablet 5 mg PO DAILY 0RF bk-dfy-IX-Lx-Hc-agsvkle-lutein 0.4-162-18 mg Tablet 1 tab PO DAILY 0RF Discharge Orders: Discharge Order (Routine); Ordered 11/13/21 Ordered By: Janet Holcomb Referrals: Ora Lynn [Primary Care Provider] - Discharge Diet: Advance as tolerated Discharge Activity: Increase activity as tolerated Patient Instructions: Metoprolol (By mouth) (Lopressor, Toprol XL), Atorvastatin (By mouth) (Lipitor), Clopidogrel (By mouth) (Plavix), Heart Attack (DC), Opioid Safety Activity Restrictions/Additional Instructions: Please schedule post cardiac cath/PCI instructions [facility]ment at [facility] to be seen by the nurse practitioner in 1 week Appointment to see Dr. Camacho at the [facility] in 3 weeks Discharge Attestations Time Spent in Discharge Care*: greater than 30 min Specific Discharge Activities: educating patient, documenting/other paperwork and evaluating patient/reviewing data Time Spent in Smoking Cessation: 3 to 10 minutes Patient is strongly advised to quit smoking Quality Metrics Clinical Quality Measures [ Acute Myocardial Infaction { Clinical Trial Participant: No; Contraindication to aspirin: None; Aspirin prescribed; Contraindication to statin: None; Statin prescribed;}] Coding Level of Care Code New Pt Acute Chg FW DC note Patient Type New History Detailed Medical Decision Making Moderate Complexity Diagnoses Diabetes 1.5, managed as type [address] elevation (STEMI) myocardial infarction I21.3 Hypothyroidism E03.9 Hypothyroidism type: unspecified Dyslipidemia E78.5 Transaminitis R74.01 PVCs (premature ventricular contractions) I49.3 Atherosclerotic heart disease of [place] coronary artery with unstable angina pectoris I25.110
[2021-11-13 11:38] LABS: Glucose Point of Care 238 mg/dL (70-110)
[2021-11-13 12:13] LABS: Alanine Aminotransferase 33 U/L (0-33); Albumin Level 3.2 g/dL (3.5-5.2); Alkaline Phosphatase 109 IU/L (35-105); Anion Gap 15.9 (5-19); Aspartate Amino Transferase 94 U/L (0-32); Blood Urea Nitrogen 7 mg/dL (8-23); Calcium 8.6 mg/dL (8.5-10.5); Carbon Dioxide 22 mmol/L (22-29); Chloride 101 mmol/L (98-107); Globulin 2.9 g/dL (1.3-4.6); Glucose 264 mg/dL (65-115); Osmolality Calculated 287 mOsm/kg (285-295); Potassium 3.9 mmol/L (3.5-5.1); Sodium 135 mmol/L (136-145); Total Bilirubin 0.3 mg/dL (0.15-1.2); Total Protein 6.1 g/dL (6.6-8.7)
--- NOTE | 2021-11-13 12:40 | PC.NURSE ---
DC instructions given along with f/u appointments and medications. Scrips sent to pharmacy. PIV removed, tolerated well. Awaiting family to arrive.
--- NOTE | 2021-11-13 13:41 | PC.NURSE ---
Pt taken to private vehicle via w/c. Tolerated well.
== END 2021-11-13 13:41 | disposition home or self-care (01) | DRG 247 ==
LOC: ER 11:32 → CCL 11:34 → ICU 12:13
PROVIDERS: Internal Medicine Cardiovascular Disease; Admitting Provider Internal Medicine Cardiovascular Disease; Emergency Provider Emergency Medicine; PCP Nurse Practitioner Family; Visit Provider Internal Medicine Cardiovascular Disease
PROC: 027135Z Dilation of Coronary Artery, Two Arteries with Two Drug-eluting Intraluminal Devices, Percutaneous Approach (ICD-10-PCS; principal; 2021-11-11 10:00)
PROC: 027135Z Dilation of Coronary Artery, Two Arteries with Two Drug-eluting Intraluminal Devices, Percutaneous Approach (ICD-10-PCS; 2021-11-11 10:00)
DX: I21.21 ST elevation (STEMI) myocardial infarction involving left circumflex coronary artery (principal); I97.190 Other postprocedural cardiac functional disturbances following cardiac surgery; E13.9 Other specified diabetes mellitus without complications; E78.5 Hyperlipidemia, unspecified; I10 Essential (primary) hypertension; K21.9 Gastro-esophageal reflux disease without esophagitis; I25.110 Atherosclerotic heart disease of native coronary artery with unstable angina pectoris; I49.3 Ventricular premature depolarization; Z79.82 Long term (current) use of aspirin; Z79.890 Hormone replacement therapy; Z79.84 Long term (current) use of oral hypoglycemic drugs; E03.9 Hypothyroidism, unspecified
CPT/HCPCS: 36415; 36416; 80048; 80053; 80076; 82962; 83735; 84484; 85730; 93005; 93306; 93454; 96374; 99285; C1769; C1874; C1887; C1894; C9600; C9601; J1644; J1815; J2250; J2270; J3010; J3490; J7030; Q9967

== ENCOUNTER → 2021-11-25 09:24 | Outpatient (BNVA) | payer MEDICARE, MEDICAID, SELFPAY | PROVIDERS: PCP Nurse Practitioner Family; Visit Provider Nurse Practitioner Family | DX: I25.110 Atherosclerotic heart disease of native coronary artery with unstable angina pectoris (principal); Z09 Encounter for follow-up examination after completed treatment for conditions other than malignant neoplasm; I10 Essential (primary) hypertension | CPT/HCPCS: 80048; 99214 ==

== ENCOUNTER → 2021-12-27 14:27 | Outpatient (BNVA) | payer MEDICARE, MEDICAID, SELFPAY | PROVIDERS: PCP Nurse Practitioner Family; Visit Provider Internal Medicine Cardiovascular Disease | DX: I25.110 Atherosclerotic heart disease of native coronary artery with unstable angina pectoris (principal); Z01.810 Encounter for preprocedural cardiovascular examination; I10 Essential (primary) hypertension; E78.5 Hyperlipidemia, unspecified; K21.9 Gastro-esophageal reflux disease without esophagitis; E03.9 Hypothyroidism, unspecified; E13.9 Other specified diabetes mellitus without complications; Z79.84 Long term (current) use of oral hypoglycemic drugs; Z79.82 Long term (current) use of aspirin; Z79.02 Long term (current) use of antithrombotics/antiplatelets | CPT/HCPCS: 99214 ==

== ENCOUNTER 2022-04-18 10:03 | Outpatient (CLI) | payer MEDICARE, MEDICAID, SELFPAY ==
[2022-04-18 11:08] LABS: Albumin Level 3.7 g/dL (3.5-5.2)
[2022-04-18 11:39] VITALS: BP 118/71; PULSE 72; RESP 18; TEMP 36.8; O2SAT 99
[2022-04-18] MEDS: denosumab 60 mg SDV SUBCUT (11:46)
[2022-04-18 11:53] VITALS: BP 118/71; PULSE 82; RESP 18; TEMP 36.7; O2SAT 98
== END 2022-04-18 10:04 | disposition home or self-care (01) ==
LOC: ONCMED 10:08
PROVIDERS: PCP Nurse Practitioner Family; Referring Provider Nurse Practitioner; Visit Provider Nurse Practitioner
DX: M81.0 Age-related osteoporosis without current pathological fracture (principal)
CPT/HCPCS: 36415; 82040; 82310; 96372; J0897

== ENCOUNTER → 2023-04-26 10:12 | Outpatient (BNVA) | payer MEDICARE, MEDICAID, SELFPAY | PROVIDERS: PCP Nurse Practitioner Family; Referring Provider Nurse Practitioner; Visit Provider Nurse Practitioner | DX: M81.0 Age-related osteoporosis without current pathological fracture (principal); I10 Essential (primary) hypertension; Z79.899 Other long term (current) drug therapy | CPT/HCPCS: 82040; 82310 ==

== ENCOUNTER 2023-05-02 08:55 | Oncology outpatient (recurring) (ONCR) | payer MEDICARE, MEDICAID, SELFPAY ==
[2023-05-02 09:19] VITALS: BP 134/77; PULSE 83; RESP 18; TEMP 36.5; O2SAT 98
[2023-05-02] MEDS: denosumab 60 mg SDV SUBCUT (09:28)
[2023-05-02 09:32] VITALS: BP 134/74; PULSE 81; RESP 18; TEMP 36.6; O2SAT 98
== END 2023-05-18 23:59 | disposition home or self-care (01) ==
PROVIDERS: PCP Nurse Practitioner Family; Visit Provider Nurse Practitioner
DX: M81.0 Age-related osteoporosis without current pathological fracture (principal)
CPT/HCPCS: 96401; J0897

== ENCOUNTER → 2023-05-05 09:28 | Outpatient (BNVA) | payer MEDICARE, MEDICAID, SELFPAY | PROVIDERS: PCP Nurse Practitioner Family; Visit Provider Nurse Practitioner Family | DX: M19.042 Primary osteoarthritis, left hand (principal) | CPT/HCPCS: 73130 ==

== ENCOUNTER 2023-06-16 19:58 | Emergency (ER) | payer MEDICARE, MEDICAID, SELFPAY ==
[2023-06-16 20:07] VITALS: BP 130/80; PULSE 90; RESP 17; TEMP 36.7; O2SAT 98; BMI 29.0
[2023-06-16 20:39] LABS: Basophils % 0.2 %; Eosinophils % 0.5 %; Hematocrit 39.4 % (36-47); Lymphocytes # 2.2 10^3/uL (0.8-4.8); Lymphocytes % 40.2 %; Mean Corpuscular Hemoglobin 33.4 pg (27-33); Mean Corpuscular Volume 101.3 fl (85-98); Mean Platelet Volume 11.2 fL (7.4-10.4); Monocytes # 0.8 10^3/uL (0.2-0.9); Monocytes % 14.9 %; Neutrophils # 2.43 10^3/uL (1.8-7.7); Nucleated Red Blood Cells % 0 %; Platelet Count 194 10^3/cmm (157-399); Red Blood Count 3.89 10^6/uL (3.85-5.65); Red Cell Distribution Width 12.6 % (12.1-15.1); White Blood Count 5.52 10^3/uL (3.29-11.43)
[2023-06-16 20:48] LABS: Alanine Aminotransferase 21 U/L (0-33); Albumin Level 3.9 g/dL (3.5-5.2); Alkaline Phosphatase 94 U/L (35-105); Anion Gap 13.2 (5-19); Aspartate Amino Transferase 29 U/L (0-32); Blood Urea Nitrogen 9 mg/dL (8-23); Calcium 7.9 mg/dL (8.5-10.5); Carbon Dioxide 26 mmol/L (22-29); Chloride 100 mmol/L (98-107); Creatinine Clr Calc Pharmacy 55.2719; Globulin 3.4 g/dL (1.3-4.6); Glucose 212 mg/dL (65-115); Osmolality Calculated 285 mOsm/kg (285-295); Potassium 4.2 mmol/L (3.5-5.1); Sodium 135 mmol/L (136-145); Total Bilirubin 0.5 mg/dL (0.15-1.2); Total Protein 7.3 g/dL (6.6-8.7)
--- NOTE | 2023-06-16 21:41 | ED_ITS ---
HPI - Nausea/Vomiting/Diarrhea General: Chief complaint: Nausea/Vomiting/Diarrhea Stated complaint: possible cdiff Time Seen by Provider: 06/16/23 21:33 History of Present Illness: 83-year-old female presents to the emergency department with complaint of nausea, vomiting, diarrhea. She states the nausea and vomiting began yesterday followed by diarrhea today. The vomiting has resolved. She denies any fever or chills. She has had intermittent generalized abdominal pain with the diarrhea. She reports that someone in her household has recently been diagnosed with C. difficile. She presented to urgent care for testing but they told her it would take 3 days and she presented to the ER for a more rapid test. Currently she is pain-free without nausea or vomiting. Her diarrhea stools have improved throughout the day. She denies any other complaints currently. Associated nausea: Yes Associated symtoms: Reports nausea; Denies change in vision, chest pain or headache(s) Review of Systems Const: Denies: fever(s) or chills Eyes: Denies: change in vision ENMT: Denies: throat pain, ear or mastoid pain or nasal congestion Card: Denies: chest pain Resp: Denies: dyspnea GI: Reports: abdominal pain, nausea, vomiting and diarrhea Neuro: Denies: headache(s) PFSH ED PFSH: Medical History Dyslipidemia GERD (gastroesophageal reflux disease) HTN (hypertension) Hypothyroidism Palpitations Social History Smoking and tobacco status: never smoked Alcohol intake: never Substance/Drug Use: never Physical Exam Const: COMMON NORMALS: no acute distress, patient oriented x3 and alert HENMT: COMMON NORMALS: normocephalic HEAD & SCALP: normocephalic Eye: COMMON NORMALS: conjunctivae normal CONJUNCTIVA: Yes conjunctivae normal Resp: COMMON NORMALS: normal respiratory effort, No use of accessory muscles and clear to auscultation bilaterally AUSCULTATION: clear to auscultation bilaterally Cardio: COMMON NORMALS: regular rate RATE: regular rate GI: COMMON NORMALS: Soft to palpation and non-tender PALPATION: Yes Soft to palpation Extremity: COMMON NORMALS: normal to inspection and full ROM Neuro: COMMON NORMALS: patient oriented x3 SENSORIUM/ORIENTATION: Yes alert Course Vital Signs: Vital signs: Vital Signs Temperature 98.1 F 06/16/23 20:07 Pulse Rate 90 06/16/23 20:07 Respiratory Rate 17 06/16/23 20:07 Blood Pressure 130/80 06/16/23 20:07 Pulse Oximetry 98 06/16/23 20:07 Oxygen Delivery Me thod Room Air 06/16/23 20:07 MDM - Nausea/Vomiting/Diarrhea Medical Decision Making 83-year-old female presents to the emergency department with a history of nausea, vomiting, diarrhea that began yesterday. Her vomiting has improved but now has diarrhea although this is improving as well. She had a family member recently diagnosed with C. difficile within her household and wants to be sure s he does not have this illness. Denies any other complaints. No fever no chills. Intermittent abdominal pain has improved. DDx: Gastroenteritis, C. diff, enterocolitis, SBO, diverticulitis C. difficile PCR testing was obtained and sent to the lab, however the machine is down and this will be a send out test. We will not have results for several days. Family was updated. Requested antibiotics however I declined based on unknown test results and suspicion for a gastroenteritis versus C. difficile. Do not want to prescribe antibiotics until we have a reasonable diagnosis. They verbalized understanding of this plan. Follow-up with PCP as recommended. Lab Data 06/16/23 20:24 06/16/23 20:24 Laboratory Results WBC 5.52 10^3/uL (3.29-11.43) 06/16/23 20:24 RBC 3.89 10^6/uL (3.85-5.65) 06/16/23 20:24 Hgb 13.00 g/dL (11.27-16.99) 06/16/23 20:24 Hct 39.4 % (36-47) 06/16/23 20:24 MCV 101.3 fl (85-98) H 06/16/23 20:24 MCH 33.4 pg (27-33) H 06/16/23 20:24 MCHC 33.0 g/dL (30-55) 06/16/23 20:24 RDW 12.6 % (12.1-15.1) 06/16/23 20:24 Plt Count 194 10^3/cmm (157-399) 06/16/23 20:24 MPV 11.2 fL (7.4-10.4) H 06/16/23 20:24 Neut % (Auto) 44.0 % 06/16/23 20:24 Lymph % (Auto) 40.2 % 06/16/23 20:24 [place] % (Auto) 14.9 % 06/16/23 20:24 Eos % (Auto) 0.5 % 06/16/23 20:24 Baso % (Auto) 0.2 % 06/16/23 20:24 Neut # (Auto) 2.43 10^3/uL (1.8-7.7) 06/16/23 20:24 Lymph # (Auto) 2.2 10^3/uL (0.8-4.8) 06/16/23 20:24 [place] # (Auto) 0.8 10^3/uL (0.2-0.9) 06/16/23 20:24 Eos # (Auto) 0.0 10^3/uL (0.0-0.8) 06/16/23 20:24 Baso # (Auto) 0.0 10^3/uL (0.0-0.1) 06/16/23 20:24 Nucleated RBC % (auto) 0 % 06/16/23 20:24 Nucleated RBCs # 0.0 /100WBC 06/16/23 20:24 Sodium 135 mmol/L (136-145) L 06/16/23 20:24 Potassium 4.2 mmol/L (3.5-5.1) 06/16/23 20:24 Chloride 100 mmol/L (98-107) 06/16/23 20:24 Carbon Dioxide 26 mmol/L (22-29) 06/16/23 20:24 Anion Gap 13.2 (5-19) 06/16/23 20:24 BUN 9 mg/dL (8-23) 06/16/23 20:24 Creatinine 0.6 mg/dL (0.5-0.9) 06/16/23 20:24 GFR Calculation Not Reportable 06/16/23 20:24 Glucose 212 mg/dL (65-115) H 06/16/23 20:24 Calculated Osmolality 285 mOsm/kg (285-295) 06/16/23 20:24 Calcium 7.9 mg/dL (8.5-10.5) L 06/16/23 20:24 Total Bilirubin 0.5 mg/dL (0.15-1.2) 06/16/23 20:24 AST 29 U/L (0-32) 06/16/23 20:24 ALT 21 U/L (0-33) 06/16/23 20:24 Alkaline Phosphatase 94 U/L (35-105) 06/16/23 20:24 Total Protein 7.3 g/dL (6.6-8.7) 06/16/23 20:24 Albumin 3.9 g/dL (3.5-5.2) 06/16/23 20:24 Globulin 3.4 g/dL (1.3-4.6) 06/16/23 20:24 No radiology studies performed this visit Discharge Plan Discharge Patient Disposition: Home Clinical Impression: Diarrhea Condition: Stable Prescriptions: No Action aspirin [Adult Low Dose Aspirin] 81 mg tablet,delayed release (DR/EC) 81 mg PO DAILY calcium carbonate-vitamin D3 [Calcium 500 + D] 500 mg(1,250mg) -200 unit tablet 1 tab PO DAILY estradiol 1 mg tablet 1 mg PO DAILY levothyroxine 25 mcg capsule 25 mcg PO DAILY omega-3 fatty acids 1,000 mg capsule 1,000 mg PO DAILY ascorbic acid (vitamin C) 1,000 mg tablet 1 gm PO DAILY cholecalciferol (vitamin D3) 1,000 unit capsule 1,000 unit PO DAILY vitamin E 200 unit capsule 200 unit PO DAILY hydrochlorothiazide 12.5 mg tablet 25 mg PO DAILY PRN Patient Comments: PRN magnesium oxide 400 mg magnesium capsule 400 mg PO DAILY gemfibrozil 600 mg tablet 600 ea PO DAILY AREDS 1 tab PO BID nitroglycerin 0.4 mg tablet, sublingual 0.4 mg sublingual Q5M PRN (Reason: chest pain) Qty: 30 3RF Rx Instructions: do not exceed 3 doses per episode jy-knh-MF-Cz-Wa-mcatszk-lutein 0.4-162-18 mg Tablet 1 tab PO DAILY clopidogrel 75 mg Tablet 75 mg PO DAILY 30 Days Qty: 30 5RF atorvastatin 40 mg Tablet 40 mg PO BEDTIME Qty: 30 5RF metoprolol tartrate 25 mg Tablet 25 mg PO BID@0900,2100 30 Days Qty: 60 5RF acetaminophen-codeine 300-60 mg tablet 1 - 2 tab PO Q6H PRN glipizide 5 mg tablet 5 mg PO DAILY PRN methocarbamol 500 mg tablet 500 mg PO DAILY PRN Discharge Orders: Discharge ED (Routine); Ordered 06/16/23 Ordered By: Cassandra Smart Referrals: Ora Lynn [Primary Care Provider] - Discharge Diet: Advance as tolerated Discharge Activity: Resume usual activity Patient Instructions: Opioid Safety, Pain Management, C. Diff (Clostridioides Difficile) Infection (DC) Activity Restrictions/Additional Instructions: Increase diet as tolerated. Increase fluid intake. Consider using Imodium ejji-amm-eyjvegk for continued diarrhea. C. difficile test results will be called to you. Follow-up with your primary care provider Return to the ER for any new or worsening problems. Coding Level of Care Code ED Customer Assistance Associate for Almaz Sutton
[2023-06-19 15:55] LABS: Clostridium Difficile PCR NOT DETECTED (NOT DETECTED)
== END 2023-06-16 22:45 | disposition home or self-care (01) ==
PROVIDERS: Emergency Medicine; Emergency Provider Clinical Nurse Specialist Adult Health; PCP Nurse Practitioner Family
DX: R19.7 Diarrhea, unspecified (principal); Z79.82 Long term (current) use of aspirin; Z79.02 Long term (current) use of antithrombotics/antiplatelets; Z79.84 Long term (current) use of oral hypoglycemic drugs; E78.5 Hyperlipidemia, unspecified; I10 Essential (primary) hypertension
CPT/HCPCS: 36415; 80053; 85025; 87493; 99283

== ENCOUNTER 2023-11-06 13:52 | Oncology outpatient (recurring) (ONCR) | payer MEDICARE, MEDICAID, SELFPAY ==
[2023-11-06] MEDS: denosumab 60 mg SDV SUBCUT (14:11)
[2023-11-06 14:14] VITALS: BP 129/83; PULSE 101; RESP 16; TEMP 36.4; O2SAT 98
== END 2023-11-16 23:59 | disposition home or self-care (01) ==
LOC: ONCMED 13:54
PROVIDERS: PCP Nurse Practitioner Family; Visit Provider Nurse Practitioner
DX: M81.0 Age-related osteoporosis without current pathological fracture (principal)
CPT/HCPCS: 96372; J0897

== ENCOUNTER 2024-05-06 13:27 | Oncology outpatient (recurring) (ONCR) | payer MEDICARE, MEDICAID, SELFPAY ==
[2024-05-06] MEDS: denosumab 60 mg SDV SUBCUT (14:38)
[2024-05-06 14:45] VITALS: BP 104/68; PULSE 88; RESP 16; TEMP 36.3; O2SAT 99
== END 2024-05-18 23:59 | disposition home or self-care (01) ==
PROVIDERS: PCP Nurse Practitioner Family; Visit Provider Nurse Practitioner
DX: M81.0 Age-related osteoporosis without current pathological fracture (principal); Z79.899 Other long term (current) drug therapy
CPT/HCPCS: 96372; J0897

== ENCOUNTER 2024-11-29 09:57 | Oncology outpatient (recurring) (ONCR) | payer MEDICARE, MEDICAID, SELFPAY ==
[2024-11-29 10:11] VITALS: BP 124/72; PULSE 76; RESP 17; TEMP 36.7; O2SAT 99
[2024-11-29] MEDS: denosumab 60 mg SDV SUBCUT (10:26)
== END 2024-12-16 23:59 | disposition home or self-care (01) ==
PROVIDERS: PCP Nurse Practitioner Family; Visit Provider Nurse Practitioner
DX: M81.0 Age-related osteoporosis without current pathological fracture (principal); Z79.899 Other long term (current) drug therapy
CPT/HCPCS: 96372; J0897

== ENCOUNTER 2025-05-05 11:15 | Emergency (ER) | payer MEDICARE, MEDICAID, SELFPAY ==
[2025-05-05 11:17] VITALS: BP 137/73; PULSE 80; TEMP 36.4; O2SAT 99; BMI 28.0
--- OUTSIDE RECORDS SUMMARY | 2025-05-05 11:20 | XMS_ITS | Encounter Summary ---
Author Organization [facility] Address [address] [place] [address] Care Team Providers Care Membership Assistant Name Role Phone Unavailable Primary Care Provider Unavailabl e Encounter Details Date Type Department Care Team (Latest Contact Info) Description 05/28/[address] [facility] Nose [facility] Th[facility] [address] [place] 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
--- OUTSIDE RECORDS SUMMARY | 2025-05-05 11:20 | XMS_ITS | Clinical Summary ---
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
--- NOTE | 2025-05-05 11:23 | XR_ITS ---
WS: [id number] Portable AP upright chest, 05/05/2025 Clinical Data: cp Comparison: PA chest, 01/25/2019 Findings: No nodules, masses or effusions are seen. The heart is normal. The pulmonary vascularity is not increased. No pneumonia or pneumothorax is seen. The aortic arch and descending thoracic aorta show tortuosity. There is a calcified granuloma in the right midlung. XR/XR chest 1V portable [id number] Impression: Atherosclerosis.
--- NOTE | 2025-05-05 11:24 | ECG_ITS ---
[employer] Test Date: 2025-05-05 Pat Name: [address] Department: Room: Gender: Female Cso: : 1940 Requested By: Juan Daniel Barkley Order Number: [id number] Dat MD: Janet Holcomb M.D. Measurements Intervals [place] Rate: 79 P: 40 [place]: 169 QRS: -23 QRSD: 78 T: 70 QT: 375 QTc: 430 Interpretive Statements SINUS RHYTHM WITH SINUS ARRHYTHMIA LOW QRS VOLTAGE IN PRECORDIAL LEADS [QRS DEFLECTION < 1.0 mV IN CHEST LEADS] POSSIBLE ANTERIOR MYOCARDIAL INFARCTION , PROBABLY OLD [30 ms Q WAVE IN V3/V4, OR R < 0.2 mV IN V4] INTERPRETATION BASED ON A DEFAULT AGE OF 40 YEARS Compared to ECG 11/13/2021 10:56:59 Left-axis deviation no longer present T-wave abnormality no longer present Possible ischemia no longer present Myocardial infarct finding still present Electronically Signed On 05-10-2025 09:17:25 CDT by Janet Holcomb M.D. [id number]
[2025-05-05 11:58] LABS: Hematocrit 40.1 % (36-47); Hemoglobin 13.20 g/dL (11.27-16.99); Mean Corpuscular HGB Conc 32.9 g/dL (30-55); Mean Corpuscular Hemoglobin 33.1 pg (27-33); Mean Corpuscular Volume 100.5 fl (85-98); Nucleated Red Blood Cells % 0 %; Platelet Count 217 10^3/cmm (157-399); Red Blood Count 3.99 10^6/uL (3.85-5.65); White Blood Count 7.83 10^3/uL (3.29-11.43)
[2025-05-05 12:11] LABS: INR 0.89 (0.8-1.2); Prothrombin Time 12.70 SECONDS (12.1-14.9)
[2025-05-05 12:16] LABS: Alanine Aminotransferase 19 U/L (0-33); Albumin Level 4.2 g/dL (3.5-5.2); Alkaline Phosphatase 114 U/L (35-105); Anion Gap 15.6 (5-19); Aspartate Amino Transferase 28 U/L (0-32); Blood Urea Nitrogen 11 mg/dL (8-23); Calcium 9.4 mg/dL (8.5-10.5); Carbon Dioxide 25 mmol/L (22-29); Chloride 101 mmol/L (98-107); Creatinine Clr Calc Pharmacy 48.6351; Globulin 3.1 g/dL (1.3-4.6); Glucose 177 mg/dL (65-115); Lipase 29 U/L (13-60); Osmolality Calculated 288 mOsm/kg (285-295); Potassium 4.6 mmol/L (3.5-5.1); Sodium 137 mmol/L (136-145); Total Protein 7.3 g/dL (6.6-8.7); Troponin(5th) Baseline 7 ng/L (0-10)
--- NOTE | 2025-05-05 12:45 | W.ED.CHESTPA ---
HPI - Chest Pain General: Chief Complaint: Chest Pain Stated Complaint: chest pain, L arm tingling Time Seen by Provider: 05/05/25 12:29 Source: patient Mode of arrival: ambulatory Limitations: no limitations History of Present Illness: 85-year-old female states she been having intermittent chest pains been going on for 3 weeks states that she will have a sharp twinge some numbness down her arm she denies any pain currently she denies any shortness of breath she denies any worse or improving factors. Associated symptoms: Deny abdominal pain, dyspnea, fever(s), nausea or vomiting Related Data Home Medications ?Medication ?Instructions ?Recorded ?Confirmed ascorbic acid (vitamin C) 1,000 mg 1 gm PO DAILY 09/23/19 11/25/21 tablet aspirin 81 mg tablet,delayed 81 mg PO DAILY 09/23/19 11/25/21 release (Adult Low Dose Aspirin) calcium 500 mg (as 1 tab PO DAILY 09/23/19 11/25/21 carbonate)-vitamin D3 5 mcg (200 unit) tablet (Calcium 500 + D) cholecalciferol (vitamin D3) 25 1,000 unit PO DAILY 09/23/19 11/25/21 mcg (1,000 unit) capsule estradiol 1 mg tablet 1 mg PO DAILY 09/23/19 11/25/21 levothyroxine 25 mcg capsule 25 mcg PO DAILY 09/23/19 11/25/21 omega-3 fatty acids 1,000 mg 1,000 mg PO DAILY 09/23/19 11/25/21 capsule vitamin E 200 unit capsule 200 unit PO DAILY 09/23/19 11/25/21 magnesium oxide 400 mg PO DAILY 03/31/20 11/25/21 AREDS 1 tab PO BID 10/06/21 11/25/21 gemfibrozil 600 mg tablet 600 ea PO DAILY 10/06/21 11/25/21 [id number]-BU 0.4 mg-calcium 162 1 tab PO DAILY 11/12/21 11/25/21 mg-iron 18 [id number]-vagrtn tablet acetaminophen 300 mg-codeine 60 mg 1 - 2 tab PO Q6H PRN 12/27/21 tablet glipizide 5 mg tablet 5 mg PO DAILY PRN 12/27/21 hydrochlorothiazide 12.5 mg tablet 25 mg PO DAILY PRN 12/27/21 methocarbamol 500 mg tablet 500 mg PO DAILY PRN 12/27/21 Previous Rx's ?Medication ?Instructions ?Recorded atorvastatin 40 mg tablet 40 mg PO BEDTIME #30 tabs 11/13/21 clopidogrel 75 mg tablet 75 mg PO DAILY 30 days #30 tabs 11/13/21 metoprolol tartrate 25 mg tablet 25 mg PO BID@0900,2100 30 days #60 11/13/21 tabs nitroglycerin 0.4 mg sublingual 0.4 mg sublingual Q5M PRN chest 11/25/21 tablet pain #30 tabs Allergies Allergy/AdvReac Type Severity Reaction Status Date / Time No Known Allergies Allergy Verified 05/05/25 11:27 Review of Systems Const: Denies: fever(s), chills, body aches or change in appetite ENMT: Denies: throat pain or dental pain Card: Reports: chest pain Resp: Denies: dyspnea GI: Denies: abdominal pain, nausea, vomiting or diarrhea Musc: Denies: neck pain or back pain Skin/Breast: Denies: rash Neuro: Denies: headache(s) PFSH ED PFSH: Medical History Hypothyroidism Palpitations GERD (gastroesophageal reflux disease) Dyslipidemia HTN (hypertension) Social History Smoking and tobacco/nicotine status: never used tobacco/nicotine Alcohol intake: never Substance/Drug Use: never Physical Exam Const: COMMON NORMALS: no acute distress, patient oriented x3 and healthy appearing HENMT: COMMON NORMALS: normocephalic and atraumatic HEAD & SCALP: normocephalic and atraumatic Eye: COMMON NORMALS: Equal, round and reactive pupils present and EOMs intact bilaterally PUPIL: Yes Equal, round and reactive pupils present Neck/C-Spine: COMMON NORMALS: full ROM and supple Chest: COMMONS NORMALS: normal inspection of the chest and normal palpation of entire chest wall Resp: COMMON NORMALS: normal respiratory effort, No retractions, No use of accessory muscles and clear to auscultation bilaterally AUSCULTATION: clear to auscultation bilaterally Cardio: COMMON NORMALS: regular rate, regular rhythm and No murmurs present (Cardio) RATE: regular rate RHYTHM: regular rhythm GI: COMMON NORMALS: Normal to inspection, nondistended, normoactive bowel sounds present, Soft to palpation, non-tender and no masses PALPATION: Yes Soft to palpation Extremity: COMMON NORMALS: normal to inspection and full ROM Neuro: COMMON NORMALS: patient oriented x3, moves all extremities and no focal motor deficits Psych: COMMON NORMALS: mental status grossly normal, Normal thought process present and cooperative THOUGHT PROCESS: Normal thought process present Skin: COMMON NORMALS: no rashes or lesions noted and no wounds GENERAL SKIN EXAM: no rashes or lesions noted Course Vital Signs: Vital signs: Vital Signs Temperature 97.6 F 05/05/25 11:17 Pulse Rate 71 05/05/25 13:15 Blood Pressure 129/72 05/05/25 13:15 Pulse Oximetry 98 05/05/25 13:15 Oxygen Delivery Me thod Room Air 05/05/25 13:15 MDM - Chest Pain Medical Decision Making Patient presents here with chest pain is atypical in nature initial repeat troponins here are normal she has no signs of ACS no signs of dissection or pulm embolism. 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 Medical Records I reviewed the patient's medical records. Lab Data I reviewed the patient's lab results. 05/05/25 11:50 05/05/25 11:50 Radiology Impressions Chest X-Ray 05/05/25 11:23 Impression: Atherosclerosis. Laboratory Results WBC 7.83 10^3/uL (3.29-11.43) 05/05/25 11:50 RBC 3.99 10^6/uL (3.85-5.65) 05/05/25 11:50 Hgb 13.20 g/dL (11.27-16.99) 05/05/25 11:50 Hct 40.1 % (36-47) 05/05/25 11:50 MCV 100.5 fl (85-98) H 05/05/25 11:50 MCH 33.1 pg (27-33) H 05/05/25 11:50 MCHC 32.9 g/dL (30-55) 05/05/25 11:50 RDW 11.9 % (12.1-15.1) L 05/05/25 11:50 Plt Count 217 10^3/cmm (157-399) 05/05/25 11:50 MPV 11.0 fL (7.4-10.4) H 05/05/25 11:50 Neut % (Auto) 48.3 % 05/05/25 11:50 Lymph % (Auto) 40.6 % 05/05/25 11:50 [place] % (Auto) 9.2 % 05/05/25 11:50 Eos % (Auto) 1.4 % 05/05/25 11:50 Baso % (Auto) 0.5 % 05/05/25 11:50 Neut # (Auto) 3.78 10^3/uL (1.8-7.7) 05/05/25 11:50 Lymph # (Auto) 3.2 10^3/uL (0.8-4.8) 05/05/25 11:50 [place] # (Auto) 0.7 10^3/uL (0.2-0.9) 05/05/25 11:50 Eos # (Auto) 0.1 10^3/uL (0.0-0.8) 05/05/25 11:50 Baso # (Auto) 0.0 10^3/uL (0.0-0.1) 05/05/25 11:50 Nucleated RBC % (auto) 0 % 05/05/25 11:50 Nucleated RBCs # 0.0 /100WBC 05/05/25 11:50 PT 12.70 SECONDS (12.1-14.9) 05/05/25 11:50 INR 0.89 (0.8-1.2) 05/05/25 11:50 Sodium 137 mmol/L (136-145) 05/05/25 11:50 Potassium 4.6 mmol/L (3.5-5.1) 05/05/25 11:50 Chloride 101 mmol/L (98-107) 05/05/25 11:50 Carbon Dioxide 25 mmol/L (22-29) 05/05/25 11:50 Anion Gap 15.6 (5-19) 05/05/25 11:50 BUN 11 mg/dL (8-23) 05/05/25 11:50 Creatinine 0.5 mg/dL (0.5-0.9) 05/05/25 11:50 GFR Calculation Not Reportable 05/05/25 11:50 Glucose 177 mg/dL (65-115) H 05/05/25 11:50 Calculated Osmolality 288 mOsm/kg (285-295) 05/05/25 11:50 Calcium 9.4 mg/dL (8.5-10.5) 05/05/25 11:50 Total Bilirubin 0.5 mg/dL (0.15-1.2) 05/05/25 11:50 AST 28 U/L (0-32) 05/05/25 11:50 ALT 19 U/L (0-33) 05/05/25 11:50 Alkaline Phosphatase 114 U/L (35-105) H 05/05/25 11:50 Troponin T Baseline 7 ng/L (0-10) 05/05/25 11:50 Troponin T 120 Minute 6.22 ng/L (0-10) 05/05/25 13:36 Delta Troponin T -0.78 ABS# (0-10) L 05/05/25 13:36 Total Protein 7.3 g/dL (6.6-8.7) 05/05/25 11:50 Albumin 4.2 g/dL (3.5-5.2) 05/05/25 11:50 Globulin 3.1 g/dL (1.3-4.6) 05/05/25 11:50 Lipase 29 U/L (13-60) 05/05/25 11:50 All radiology interpretation(s) finalized by discharge EKG Data EKG 1: I personally reviewed and interpreted this EKG as follows: EKG interpretation date: 05/05/25 EKG interpretation time: 11:21 Interpretation: hr [address] elevation qrs 78 qtc 409 EKG 2: I personally reviewed and interpreted this EKG as follows: EKG interpretation date: 05/05/25 EKG interpretation time: 13:07 Interpretation: nsr hr [address] elevation qrs 88 qtc 414 Clincial Decision Support The following clinical decision support tools were used to aid in care of the patient HEART Score -> History: Slightly Suspicous, EKG: Normal, Age: 65 or more yrs, Risk Factors: 1 or 2 Risk Factors, Troponin: Baseline Trop <16 ng/L. Resulting HEART Score: 3. Discharge Plan Discharge Patient Disposition: Home Clinical Impression: Chest pain Condition: Stable Prescriptions: No Action aspirin [Adult Low Dose Aspirin] 81 mg tablet,delayed release (DR/EC) 81 mg PO DAILY calcium carbonate-vitamin D3 [Calcium 500 + D] 500 mg(1,250mg) -200 unit tablet 1 tab PO DAILY estradiol 1 mg tablet 1 mg PO DAILY levothyroxine 25 mcg capsule 25 mcg PO DAILY omega-3 fatty acids 1,000 mg capsule 1,000 mg PO DAILY ascorbic acid (vitamin C) 1,000 mg tablet 1 gm PO DAILY cholecalciferol (vitamin D3) 1,000 unit capsule 1,000 unit PO DAILY vitamin E 200 unit capsule 200 unit PO DAILY hydrochlorothiazide 12.5 mg tablet 25 mg PO DAILY PRN Patient Comments: PRN magnesium oxide 400 mg magnesium capsule 400 mg PO DAILY gemfibrozil 600 mg tablet 600 ea PO DAILY AREDS 1 tab PO BID nitroglycerin 0.4 mg tablet, sublingual 0.4 mg sublingual Q5M PRN (Reason: chest pain) Qty: 30 3RF Rx Instructions: do not exceed 3 doses per episode [id number]-TJ-Bk-Bh-ebynkcd-lutein 0.4-162-18 mg Tablet 1 tab PO DAILY clopidogrel 75 mg Tablet 75 mg PO DAILY 30 Days Qty: 30 5RF atorvastatin 40 mg Tablet 40 mg PO BEDTIME Qty: 30 5RF metoprolol tartrate 25 mg Tablet 25 mg PO BID@0900,2100 30 Days Qty: 60 5RF acetaminophen-codeine 300-60 mg tablet 1 - 2 tab PO Q6H PRN glipizide 5 mg tablet 5 mg PO DAILY PRN methocarbamol 500 mg tablet 500 mg PO DAILY PRN Discharge Orders: Discharge ED (Routine); Ordered 05/05/25 Ordered By: Juan Daniel Barkley Referrals: Ora Lynn [Primary Care Provider, Family Practice] Discharge Diet: Advance as tolerated Discharge Activity: Resume usual activity Patient Instructions: Chest Pain (ED) Print Language: Luxembourgish Coding Level of Care Code ED Civil Technician for Almaz Sutton
--- NOTE | 2025-05-05 13:07 | ECG_ITS ---
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 Measurements Intervals [place] Rate: 67 P: 48 [place]: 157 QRS: -31 QRSD: 88 T: 76 QT: 399 QTc: 422 Interpretive Statements SINUS RHYTHM LEFT AXIS DEVIATION [QRS AXIS < -30] LOW QRS VOLTAGE IN PRECORDIAL LEADS [QRS DEFLECTION < 1.0 mV IN CHEST LEADS] POSSIBLE RIGHT VENTRICULAR CONDUCTION DELAY [RSR (QR) IN V1/V2] POSSIBLE ANTERIOR MYOCARDIAL INFARCTION , PROBABLY OLD [30 ms Q WAVE IN V3/V4, OR R < 0.2 mV IN V4] Compared to ECG 05/05/2025 11:21:54 Left-axis deviation now present Sinus arrhythmia no longer present Myocardial infarct finding still present Electronically Signed On 05-10-2025 09:50:20 CDT by Simone Stanford M.D. [email or web address]
[2025-05-05 13:15] VITALS: BP 129/72; PULSE 71; O2SAT 98
[2025-05-05 14:04] LABS: Troponin 5 2HR 6.22 ng/L (0-10)
[2025-05-05 14:07] LABS: Troponin 5 2HR Delta -0.78 ABS# (0-10)
[2025-05-05 14:29] VITALS: BP 130/77; PULSE 70; O2SAT 96
== END 2025-05-05 14:30 | disposition home or self-care (01) ==
PROVIDERS: Emergency Provider Emergency Medicine; PCP Nurse Practitioner Family
DX: R07.9 Chest pain, unspecified (principal); Z79.82 Long term (current) use of aspirin; Z79.02 Long term (current) use of antithrombotics/antiplatelets; E78.5 Hyperlipidemia, unspecified; I10 Essential (primary) hypertension
CPT/HCPCS: 36415; 71045; 80053; 83690; 84484; 85025; 85610; 93005; 99285

== ENCOUNTER 2025-05-28 08:54 | Oncology outpatient (recurring) (ONCR) | payer MEDICARE, MEDICAID, SELFPAY ==
[2025-05-28] MEDS: denosumab 60 mg SDV (Infusion Clinic Only) SUBCUT (09:35)
[2025-05-28 10:41] VITALS: PULSE 78; RESP 18; O2SAT 98
== END 2025-06-17 23:59 | disposition home or self-care (01) ==
PROVIDERS: PCP Nurse Practitioner Family; Visit Provider Nurse Practitioner
DX: M81.0 Age-related osteoporosis without current pathological fracture (principal); Z79.899 Other long term (current) drug therapy
CPT/HCPCS: 96401; J0897